=== PATIENT | female | born 2000 | race Caucasian/White ===

== ENCOUNTER 2020-09-19 23:04 | Emergency (ER) | payer OTHER ==
[~2020-09-19] VITALS: Ht 167.6 cm; Wt 58.0 kg
[2020-09-20] MEDS ORDERED: KETOROLAC TROMETHAMINE 10 MG TAB PO ONE (04:00)
[2020-09-20] MEDS ORDERED: diphenhydrAMINE 25MG CAP PO ONE (04:00)
[2020-09-20] MEDS ORDERED: METOCLOPRAMIDE 10 MG TAB PO ONE (04:00)
[2020-09-20 04:45] VITALS: BP 121/78
== END 2020-09-20 04:53 | disposition home or self-care (01) ==
LOC: M ED 23:04
DX: G43.909 Migraine, unspecified, not intractable, without status migrainosus (principal)